=== PATIENT | male | born 1995 | race Caucasian/White ===

== ENCOUNTER 2019-10-06 10:45 | Emergency (ER) | payer OTHER ==
[~2019-10-06] VITALS: Ht 182.9 cm; Wt 83.9 kg
== END 2019-10-06 13:02 | disposition home or self-care (01) ==
LOC: ER 10:45
DX: J03.90 Acute tonsillitis, unspecified (principal)

== ENCOUNTER 2020-02-29 13:15 | Emergency (ER) | payer OTHER ==
[~2020-02-29] VITALS: Ht 182.9 cm; Wt 83.9 kg
== END 2020-02-29 16:08 | disposition home or self-care (01) ==
LOC: ER 13:15
DX: R53.81 Other malaise (principal); R53.83 Other fatigue; Z03.818 Encounter for observation for suspected exposure to other biological agents ruled out

== ENCOUNTER 2020-05-08 08:13 | Emergency (ER) | payer OTHER ==
[~2020-05-08] VITALS: Ht 182.9 cm; Wt 83.9 kg
== END 2020-05-08 09:49 | disposition home or self-care (01) ==
LOC: ER 08:13
DX: N39.0 Urinary tract infection, site not specified (principal)

== ENCOUNTER 2020-12-08 14:44 | Emergency (ER) | payer OTHER ==
[~2020-12-08] VITALS: Ht 182.9 cm; Wt 77.6 kg
[2020-12-08] MEDS ORDERED: DESCOVY 200-251 EACH (14:55)
[2020-12-08] MEDS ORDERED: BUPROPION XL150 MG PO (14:55)
[2020-12-08] MEDS ORDERED: NORFLEX100MG PO (16:18)
[2020-12-08] MEDS ORDERED: DICLOFENAC SODI75 MG PO (16:18)
== END 2020-12-08 16:47 | disposition home or self-care (01) ==
LOC: ER 14:44
DX: M54.5 Low back pain (principal)

== ENCOUNTER 2021-09-07 08:15 | Outpatient (CLI) | payer OTHER ==
[~2021-09-07 08:15] MED LIST: BUPROPION XL150 MG PO; DESCOVY 200-251 EACH; DICLOFENAC SODI75 MG PO; NORFLEX100MG PO
== END 2021-09-07 08:30 | disposition home or self-care (01) ==
LOC: PPH VACUNA 08:15
PROVIDERS: ATTEND Emergency Medicine Pediatric Emergency Medicine
DX: Z23 Encounter for immunization (principal)

== ENCOUNTER 2021-10-09 12:05 | Emergency (ER) | payer OTHER ==
[~2021-10-09] VITALS: Ht 182.9 cm; Wt 85.3 kg
[2021-10-09] MEDS ORDERED: ZYRTEC10 M3 PO (14:30)
== END 2021-10-09 14:40 | disposition home or self-care (01) ==
LOC: ER 12:05
DX: R21 Rash and other nonspecific skin eruption (principal)

== ENCOUNTER → 2021-12-24 | Emergency (ER) | payer OTHER ==
[~2021-12-24] VITALS: Ht 182.9 cm; Wt 79.4 kg
[~2021-12-24] MED LIST changes: +WELLBUTRIN XL150 M1 PO; +ZYRTEC10 M3 PO
== END | disposition home or self-care (01) ==
LOC: ER 13:21
DX: T78.40XA Allergy, unspecified, initial encounter (principal); U09.9 Post COVID-19 condition, unspecified

== ENCOUNTER 2022-03-11 20:33 | Emergency (ER) | payer OTHER ==
[~2022-03-11] VITALS: Ht 182.9 cm; Wt 81.6 kg
[2022-03-11] MEDS ORDERED: TRUVADA (20:55)
== END 2022-03-11 22:10 | disposition home or self-care (01) ==
LOC: ER 20:33
DX: M62.830 Muscle spasm of back (principal)

== ENCOUNTER → 2023-01-28 | Outpatient (CLI) | payer OTHER ==
[~2023-01-28] MED LIST changes: +TRUVADA
== END | disposition home or self-care (01) ==
LOC: RAD 15:05
DX: J22 Unspecified acute lower respiratory infection (principal)

== ENCOUNTER 2024-05-18 15:58 | Emergency (ER) | payer OTHER ==
[~2024-05-18] VITALS: Ht 182.9 cm; Wt 68.0 kg
[2024-05-18] MEDS ORDERED: CLONAZEPAM0.5 MG PO (16:59)
[2024-05-18] MEDS ORDERED: AMPHETAMINE SAL20 MG PO (16:59)
[2024-05-18] MEDS ORDERED: ANALPRAM HC 2.530 GM RECTAL (17:23)
== END 2024-05-18 17:29 | disposition home or self-care (01) ==
LOC: ER 16:00
DX: K64.9 Unspecified hemorrhoids (principal)